=== PATIENT | male | born 1960 | race Caucasian/White ===

== ENCOUNTER 2018-11-09 08:00 | Outpatient (CLI) | payer OTHER ==
[2018-11-09 12:28] LABS: BASOPHILS # (AUTO) 0.1 10^3/uL (0.0-0.1); BASOPHILS % (AUTO) 0.9 %; EOSINOPHILS # (AUTO) 0.1 10^3/uL (0.0-0.7); EOSINOPHILS % (AUTO) 1.4 %; HGB - HEMOGLOBIN 14.7 g/dL (14.0-18.0); LYMPHOCYTES # (AUTO) 1.5 10^3/uL (1.5-3.5); LYMPHOCYTES % (AUTO) 22.7 %; MEAN CORPUSCULAR HEMOGLOBIN 29.6 pg (27.0-31.0); MEAN CORPUSCULAR HGB CONC 33.5 g/dL (32.0-36.0); MEAN CORPUSCULAR VOLUME 88.3 fL (80.0-94.0); MEAN PLATELET VOLUME 11.3 fL (7.4-11.4); MONOCYTES # (AUTO) 0.8 10^3/uL (0.0-1.0); MONOCYTES % (AUTO) 12.3 %; NEUTROPHILS # (AUTO) 4.1 10^3/uL (1.5-6.6); NEUTROPHILS % (AUTO) 62.5 %; PLT - PLATELET COUNT 252 10^3/uL (130-450); RED BLOOD COUNT 4.97 10^6/uL (4.70-6.10); RED CELL DISTRIBUTION WIDTH 13.1 % (12.0-15.0); WHITE BLOOD COUNT 6.6 x10^3/uL (4.8-10.8)
[2018-11-09 13:00] LABS: ALBUMIN 4.4 g/dL (3.2-5.5); ALBUMIN/GLOBULIN RATIO 1.3 (1.0-2.2); ALKALINE PHOSPHATASE 64 IU/L (42-121); ALT ALANINE AMINOTRANSFERASE 21 IU/L (10-60); AST ASPARTATE AMINOTRANSFERASE 18 IU/L (10-42); BILIRUBIN,TOTAL 0.9 mg/dL (0.2-1.0); BUN - BLOOD UREA NITROGEN 13 mg/dL (6-20); CARBON DIOXIDE - CO2 22 mmol/L (21-32); CHLORIDE 110 mmol/L (101-111); CHOL/HDL RATIO 4.7 (<5.0); CHOLESTEROL 140 mg/dL; CREATININE 0.8 mg/dL (0.6-1.2); GFR - MDRD 99 (>89); GLUCOSE 108 mg/dL (70-100); HDL CHOLESTEROL 30 mg/dL; LDL CHOLESTEROL,CALCULATED 95 mg/dL; LDL/HDL RATIO 3.2 (<3.6); SODIUM 140 mmol/L (135-145); TOTAL PROTEIN 7.8 g/dL (6.7-8.2); VLDL CHOLESTEROL 15 mg/dL
== END 2018-11-09 23:59 | disposition home or self-care (01) ==
LOC: LAB.WCP 08:00
PROVIDERS: ATTEND Family Medicine
DX: Z00.00 Encounter for general adult medical examination without abnormal findings (principal); Z12.5 Encounter for screening for malignant neoplasm of prostate
CPT/HCPCS: 36415; 80053; 80061; 83721; 84153; 84443; 85025

== ENCOUNTER 2021-11-27 09:58 | Outpatient (CLI) | payer BC ==
[2021-11-27 11:45] LABS: BASOPHILS # (AUTO) 0.1 10^3/uL (0.0-0.1); BASOPHILS % (AUTO) 0.8 %; EOSINOPHILS # (AUTO) 0.1 10^3/uL (0.0-0.7); EOSINOPHILS % (AUTO) 1.2 %; HCT - HEMATOCRIT 44.4 % (42.0-52.0); LYMPHOCYTES # (AUTO) 1.6 10^3/uL (1.5-3.5); LYMPHOCYTES % (AUTO) 26.4 %; MEAN CORPUSCULAR HEMOGLOBIN 29.5 pg (27.0-31.0); MEAN CORPUSCULAR HGB CONC 33.8 g/dL (32.0-36.0); MEAN CORPUSCULAR VOLUME 87.4 fL (80.0-94.0); MEAN PLATELET VOLUME 10.7 fL (7.4-11.4); MONOCYTES # (AUTO) 0.7 10^3/uL (0.0-1.0); MONOCYTES % (AUTO) 11.5 %; NEUTROPHILS # (AUTO) 3.6 10^3/uL (1.5-6.6); NEUTROPHILS % (AUTO) 59.9 %; PLT - PLATELET COUNT 270 10^3/uL (130-450); RED BLOOD COUNT 5.08 10^6/uL (4.70-6.10); RED CELL DISTRIBUTION WIDTH 13.5 % (12.0-15.0)
[2021-11-27 12:04] LABS: ALBUMIN 4.5 g/dL (3.2-5.5); ALBUMIN/GLOBULIN RATIO 1.7 (1.0-2.2); ALKALINE PHOSPHATASE 48 IU/L (42-121); ALT ALANINE AMINOTRANSFERASE 32 IU/L (10-60); AST ASPARTATE AMINOTRANSFERASE 21 IU/L (10-42); BILIRUBIN,TOTAL 0.7 mg/dL (0.2-1.0); BUN - BLOOD UREA NITROGEN 13 mg/dL (6-20); CALCIUM 9.2 mg/dL (8.5-10.3); CARBON DIOXIDE - CO2 25 mmol/L (21-32); CHLORIDE 106 mmol/L (101-111); CHOL/HDL RATIO 5.2 (<5.0); CHOLESTEROL 178 mg/dL; CREATININE 0.8 mg/dL (0.6-1.2); GFR - MDRD 98 (>89); GLUCOSE 119 mg/dL (70-100); HDL CHOLESTEROL 34 mg/dL; LDL CHOLESTEROL,CALCULATED 128 mg/dL; LDL/HDL RATIO 3.8 (<3.6); POTASSIUM 3.9 mmol/L (3.5-5.0); SODIUM 139 mmol/L (135-145); TOTAL PROTEIN 7.2 g/dL (6.7-8.2); TRIGLYCERIDES 79 mg/dL; VLDL CHOLESTEROL 16 mg/dL
[2021-11-27 12:17] LABS: THYROID STIMULATING HORMONE 2.28 uIU/mL (0.34-5.60)
== END 2021-11-27 09:59 | disposition home or self-care (01) ==
LOC: LAB.N 09:58
PROVIDERS: ATTEND Family Medicine
DX: Z00.00 Encounter for general adult medical examination without abnormal findings (principal); E66.9 Obesity, unspecified; R03.0 Elevated blood-pressure reading, without diagnosis of hypertension; Z12.5 Encounter for screening for malignant neoplasm of prostate
CPT/HCPCS: 36415; 80053; 80061; 83721; 84153; 84443; 85025

== ENCOUNTER 2022-10-21 08:52 | Day surgery (SDC) | payer BC ==
--- NOTE | 2022-10-21 08:43 | ANESTHESIA ---
Pre-Anesthesia VS, & Labs - Diagnosis screening - Procedure colonoscopy - NPO >8 hours Last Fluid Intake: am prep - Lab Results Lab results reviewed: Yes Home Medications and Allergies Home Medications: Ambulatory Orders No Known Home Medications 10/17/22 No Known Home Medications 10/17/22 Allergies/Adverse Reactions: Allergies Allergy/AdvReac Type Severity Reaction Status Date / Time No Known Drug Allergies Allergy Verified 10/17/22 10:51 Anes History & Medical History - Anesthetic History Anesthesia Complications: reports: No previous complications Family history of Anesthesia Complications: Denies Family history of Malignant Hyperthermia: Denies - Medical History Cardiovascular: reports: None Pulmonary: reports: None Gastrointestinal: reports: None Urinary: reports: None Musculoskeletal: reports: None Endocrine/Autoimmune: reports: None Skin: reports: None History of Cancer?: No - Surgical History Eyes Ears Nose Throat (EENT): reports: Tonsil/Adenoidectomy Exam General: Alert, Oriented x3, Cooperative Dental: WNL Mouth Openin Fingerbreadth Neck Mobility: Normal Mallampati classification: II Thyromental Distance: 4-6 cm Respiratory: Lungs clear, Normal breath sounds, No respiratory distress Cardiovascular: Regular rate Neurological: Normal speech Mental/Cognitive Status: Alert/Oriented X3, Normal for patient Cognitive Status: Within normal limits Plan Anesthesia Type: Total IV Consent for Procedure(s) Verified and Reviewed: Yes Code Status: Attempt Resuscitation ASA classification: 2-Mild systemic disease Is this case an emergency?: No
[2022-10-21] MEDS ORDERED: LACTATED RINGERS 1,000 ML IV ONE (08:54)
[2022-10-21] MEDS ORDERED: PROPOFOL 500 MG/50 ML 500 MG/50 ML VIAL ONE (09:40)
[2022-10-21] MEDS ORDERED: MIDAZOLAM 2 MG/2 ML VIAL ONE (10:05)
[2022-10-21] MEDS ORDERED: LACTATED RINGERS 100 ML IV ONE (11:17)
--- NOTE | 2022-10-21 11:29 | ANESTHESIA POST OP EVALUATION ---
Anesthesia Post Eval - Post Anesthesia Eval Vitals: Last Vital Signs Temp 36.3 C L 10/21/22 11:15 Pulse 75 10/21/22 11:15 Resp 16 10/21/22 11:15 BP 114/67 10/21/22 11:15 Pulse Ox 99 10/21/22 11:15 O2 Flow Rate CV Function Including HR & BP: Stable Pain Control: Satisfactory Nausea & Vomiting: Negative Mental Status: Baseline Respiratory Status: Airway Patent Hydration Status: Satisfactory Anesthesia Complications: None
[2022-10-21 11:57] VITALS: BP 131/92
== END 2022-10-21 08:53 | disposition home or self-care (01) ==
LOC: SDS 08:52
PROVIDERS: ATTEND Surgery
DX: Z12.11 Encounter for screening for malignant neoplasm of colon (principal); K57.30 Diverticulosis of large intestine without perforation or abscess without bleeding
CPT/HCPCS: 45378; J7120

== ENCOUNTER 2023-04-03 09:11 | Outpatient (CLI) | payer BC | END 2023-04-03 09:12 | disposition home or self-care (01) | LOC: DI 09:11 | PROVIDERS: ATTEND Family Medicine | DX: I10 Essential (primary) hypertension (principal) | CPT/HCPCS: 93306 ==

== ENCOUNTER 2024-02-10 14:35 | Outpatient (CLI) | payer BC ==
--- NOTE | 2024-02-10 15:25 | Sleep Patient Instructions ---
Sleep Center Visit Summary - Patient Visit Information Reason for Visit: Initial consult for evaluation of sleep disordered breathing and other sleep issues. - Patient Instructions Instructions Attached: Sleep Study, Sleep Study Home Monitor Additional Instructions: You will be completing a sleep study, either an in-lab polysomnography (PSG) or home sleep study (HST). You will follow-up in the sleep care office after the sleep study is completed to hear the results and talk about therapy, if needed. You will be called by our office staff to schedule this appointment, but you may contact us with any questions. - Clinic Information Contact: [facility] [address] [place] [id number] [email or web address] T: [phone]
--- NOTE | 2024-02-10 15:28 | SLEEP CARE CONSULTATION ---
Information from patient questionnaire entered by Emily Domingo. I have reviewed and concur with the information entered by Emily Domingo. This document represents the service I personally performed and the decisions made by me, Delmy Henriquez ARNP. History of Present Illness Service Date and Time: 02/10/2024 1435 Reason for Visit: New patient Chief Complaint: reports: Other (HEART DOCTOR REFERAL) Date of Onset: NOT SURE Usual bedtime: 2200 Time it takes to fall asleep: NOT LONG Snores at night: Yes Observed to quit breathing while asleep: No Number of times waking at night: 2-3 Reasons for waking at night: reports: Bathroom. denies: Choking, Gasping for air Toss, Turn, or Twitch while sleeping: Yes Recalls having dreams: Yes Usually gets out of bed at: 0630 Feels refreshed in the morning: No (sometimes he does feel rested) Morning headache: No Sleepy or fatigued during the day: Yes Ever fallen asleep while driving: No Takes day naps: No Dreams during day naps: Yes Prior sleep studies: No Additional HPI information: I had the pleasure of seeing GRANT CORONA today regarding the possibility of him having a sleep disorder. He was referred by his metal building assembler for evaluation. He says he was put on high blood pressure medication and then his metal building assembler referral. He has been told by his that he snores. He will sometimes get up because his mouth is dry, more regularly it is for bathroom. He says he can fall asleep if he gets still and after work when watching TV. 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 Patient is and lives in [place]. Have you smoked in the past 12 months: No Alcohol use: Yes Alcohol amount and frequency: VERY LITTLE 2 TIMES A YEAR Caffeine use: Yes Caffeine amount and frequency: All; don't drink coffee Family History Family history of sleep disordered breathing: No (NOT SURE) Allergies and Home Medications Known drug allergies: No Drug allergies reviewed: Yes Home medication list reviewed: Yes (as listed) Allergy and home medication list: Allergies No Known Drug Allergies Allergy (Verified 10/17/22 10:51) Home Medications Losartan Potassium See Rx Instructions .ROUTE .COMPLEX 02/10/24 [History Confirmed 02/10/24] Review of Systems Cardiovascular: reports: high blood pressure Gastrointestinal: denies: heartburn Neurological: denies: headaches Psychiatric: denies: anxiety, depression Ear/Nose/Throat: reports: tonsillectomy Physical Exam Vital signs obtained and entered by: EMILY Jeronimo MA Blood Pressure: 167/85 (LEFT ARM) Cuff size: regular Heart Rate: 73 O2 Saturation: 98 Height: 5 ft 8 in Weight: 260 lb 12.8 oz Body Mass Index: 39.6 BMI Classification: Obese Neck circumference: 18 Mouth and throat: narrow oropharynx Soft palate: long Hard palate: normal Uvula: normal Uvula visualization: 0% Mallampati Class IV Tongue: enlarged in size with teeth wright on lateral edges Tonsils: absent bilaterally Heart: regular rate and rhythm Lungs: clear bilaterally Impression and Plan 1. Suspected Obstructive Sleep Apnea-Hypopnea Syndrome, as suggested by a history of loud and irregular snoring, unrefreshed sleep, and excessive daytime sleepiness. Narrow oropharynx and obesity are common predisposing factors for obstructive sleep apnea-hypopnea syndrome. I recommend proceeding to polysomnography to confirm the diagnosis and to assess severity. If the patient has significant sleep disordered breathing, a manual CPAP titration study will also be performed to find the optimal treatment pressure. I informed the patient of what the sleep studies involve and after some discussion, obtained agreement to proceed. The pathophysiology of obstructive sleep apnea-hypopnea syndrome was discussed with the patient and health risks of cardiovascular and cerebrovascular disease if not treated. Risks of drowsy driving discussed in detail and patient advised to avoid long distance driving and to pick pulling machine tender at the first sign of drowsiness. Patient agreed to plan. * Schedule polysomnography +- manual CPAP titration study and return in 1-2 weeks after the study to discuss result and initiate therapy. * Avoid long distance driving or driving when feeling sleepy. * Avoid alcohol, sedative and muscle relaxant around bedtime. * Attempt to lose weight. * Review instructions provided by trained office staff on how to prepare for the sleep study. * Return for follow-up after sleep study completed. Counseling Topics: Weight loss health impact Plan: sleep study and followup Visit Type: In Office Time Spent with Patient (minutes): 30 Provider Statement: I spent 100% of the Face to Face Visit with the patient with greater than 50% spent counseling the patient and coordination of care.
[2024-02-10 15:29] VITALS: BP 167/85; O2SAT 98
== END 2024-02-10 14:36 | disposition home or self-care (01) ==
LOC: SC 14:35
PROVIDERS: ATTEND Nurse Practitioner Family
DX: G47.10 Hypersomnia, unspecified (principal); R06.83 Snoring; G47.8 Other sleep disorders; E66.9 Obesity, unspecified; Z68.39 Body mass index [BMI] 39.0-39.9, adult
CPT/HCPCS: 99203; 99212